=== PATIENT | male | born 1980 ===

== ENCOUNTER 2017-07-15 07:20 | Outpatient (CLI) | payer OTHER ==
[~2017-07-15] VITALS: Ht 182.9 cm; Wt 79.4 kg
== END 2017-07-15 07:40 | disposition home or self-care (01) ==
LOC: OFIC 805 07:20
DX: H90.42 Sensorineural hearing loss, unilateral, left ear, with unrestricted hearing on the contralateral side (principal); H93.12 Tinnitus, left ear

== ENCOUNTER 2017-07-22 08:29 | Outpatient (CLI) | payer OTHER ==
[~2017-07-22] VITALS: Ht 182.9 cm; Wt 79.4 kg
== END 2017-07-22 08:50 | disposition home or self-care (01) ==
LOC: OFIC 805 08:29
DX: H90.12 Conductive hearing loss, unilateral, left ear, with unrestricted hearing on the contralateral side (principal); H93.13 Tinnitus, bilateral

== ENCOUNTER 2017-10-14 11:11 | Outpatient (CLI) | payer OTHER ==
[~2017-10-14] VITALS: Ht 182.9 cm; Wt 78.5 kg
== END 2017-10-14 11:30 | disposition home or self-care (01) ==
LOC: OFIC 805 11:11
DX: H90.42 Sensorineural hearing loss, unilateral, left ear, with unrestricted hearing on the contralateral side (principal); H93.12 Tinnitus, left ear